=== PATIENT | female | born 1965 | race Caucasian/White ===

== ENCOUNTER 2017-04-05 08:13 | Day surgery (SDC) | payer OTHER ==
[2017-04-05] MEDS ORDERED: LIDOCAINE 4% SOLUTION 50 ML BTL ×2 (09:09→09:22)
[2017-04-05] MEDS ORDERED: LIDOCAINE 2% JELLY 5 ML (09:20)
[2017-04-05] MEDS ORDERED: LIDOCAINE 2% (SDV) 5 ML INJ (09:32)
[2017-04-05] MEDS ORDERED: PROPOFOL 20 ML (09:32)
[2017-04-05] MEDS ORDERED: MIDAZOLAM 1 MG/ML 2 ML INJ ×3 (10:38→10:39)
[2017-04-05] MEDS ORDERED: FENTAnyl 50 MCG/ML VIAL (10:39)
== END 2017-04-05 14:11 | disposition home or self-care (01) ==
LOC: GIL 08:13
DX: K92.1 Melena (principal); K64.4 Residual hemorrhoidal skin tags; K63.5 Polyp of colon; K29.70 Gastritis, unspecified, without bleeding
CPT/HCPCS: 43239; 84703; 88305; 88312